=== PATIENT | male | born 1970 | race Caucasian/White ===

== ENCOUNTER 2021-07-23 13:10 | Emergency (ER) | payer OTHER ==
[~2021-07-23] VITALS: Ht 160 cm; Wt 86.2 kg
[2021-07-23] MEDS ORDERED: PROAIR HFA8.5 GM INH (13:21)
[2021-07-23] MEDS ORDERED: APAP W/CODEINE1 TA2 PO (13:21)
[2021-07-23] MEDS ORDERED: TESSALON PERLE100 MG PO (13:21)
[2021-07-23 13:25] VITALS: BP 134/70
== END 2021-07-23 13:30 | disposition home or self-care (01) ==
LOC: M.ERS 13:10
DX: U07.1 COVID-19 (principal); I10 Essential (primary) hypertension